=== PATIENT | male | born 1960 | race Caucasian/White ===

== ENCOUNTER 2016-09-25 19:23 | Emergency (ER) | payer MEDICAID ==
[~2016-09-25] VITALS: Ht 165.1 cm; Wt 95.5 kg
[~2016-09-25 19:23] MED LIST: BP MED; DM MED
[2016-09-25] MEDS ORDERED: LISI-661 PO (19:48)
[2016-09-25] MEDS ORDERED: SIMV-260 PO (19:48)
[2016-09-25] MEDS ORDERED: HYDR-305 PO (19:48)
[2016-09-25] MEDS ORDERED: ALPR1TAB7 PO (19:48)
[2016-09-25] MEDS ORDERED: AMIT25TA9 PO (19:48)
[2016-09-25] MEDS ORDERED: AMLO-511 PO (19:48)
[2016-09-25] MEDS ORDERED: LUBI24CA2 PO (19:48)
[2016-09-25] MEDS ORDERED: DULO60CA44 PO (19:48)
[2016-09-25] MEDS ORDERED: ASPI81TA42 PO (19:48)
[2016-09-25] MEDS ORDERED: METF10002 PO (19:48)
[2016-09-25] MEDS ORDERED: PREG75 PO (19:48)
[2016-09-25] MEDS ORDERED: HYDROCODONE/ACETAMINOPHEN 5-325 MG TABLET PO ONE ×2 (21:45)
[2016-09-25 22:02] VITALS: BP 148/86
== END 2016-09-25 22:08 | disposition home or self-care (01) ==
LOC: EMS 19:25
DX: M54.5 Low back pain (principal); F41.9 Anxiety disorder, unspecified; G89.29 Other chronic pain; E11.9 Type 2 diabetes mellitus without complications; I10 Essential (primary) hypertension; Z79.84 Long term (current) use of oral hypoglycemic drugs
CPT/HCPCS: 99283